=== PATIENT | female | born 1945 | race Caucasian/White ===

== ENCOUNTER 2023-05-02 09:38 | Outpatient (OUT) | payer MEDICARE, OTHER, SELFPAY ==
--- NOTE | 2023-05-02 09:48 | CT_ITS ---
[address] [address] Patient Name: JOSE J AYALA MRN: [id number] date: 1945 Sex: F Assigned Patient Location: LAB Current Patient Location: LAB Accession/Order Number: [id number] Exam Date: 05/02/2023 10:13 Report Date: 05/02/2023 12:19 At the request of: NATALIE BROUSSARD Procedure: CT angio abdomen pelvis EXAMINATION: CT angio abdomen pelvis HISTORY: aortic aneurysm abdominal I71.40 COMPARISON: CT abdomen pelvis 04/10/2022 TECHNIQUE: Axial, Coronal, and Sagittal CT images without and with IV contrast. Multi-planar/3-D imaging to optimize visualization of vascular anatomy. Dose reduction techniques were achieved by using automated exposure control and/or adjustment of mA and/or kV according to patient size and/or use of iterative reconstruction technique. FINDINGS: AORTA/VASCULAR: Mild fusiform dilation of the infrarenal aorta, 3.1 cm. Moderate-marked noncalcified plaque throughout aorta. CELIAC ARTERY: Normal celiac vessels. SMA: Normal mesenteric vessels. RENAL ARTERIES: Mild atherosclerotic narrowing at right origin. LUNG BASES: No visible pulmonary or pleural disease. LIVER: No enlargement, atrophy, abnormal density, or significant focal lesion. BILIARY: No visible dilatation or calcification. PANCREAS: No lesion, fluid collection, ductal dilatation, or atrophy. SPLEEN: No enlargement or focal lesion. ADRENALS: No mass or enlargement. KIDNEYS: No mass, obstruction, or calcification. BOWEL/MESENTERY: Sigmoid diverticulosis; no acute inflammatory changes. No visible mass, obstruction, or bowel wall thickening. Normal appendix. RETROPERITONEUM: No mass or adenopathy. LYMPH NODES: No adenopathy. URINARY BLADDER: No visible focal wall thickening, lesion, or calculus. PELVIC ORGANS: No visible mass. Pelvic organs appropriate for patient age. ABDOMINAL WALL: No mass or hernia. BONES: Multilevel moderate degenerative disc disease; marked at L5-S1. OTHER: Negative. CT/CT angio abdomen pelvis IMPRESSION: 1. Stable mild fusiform aneurysmal dilation of infrarenal aorta, 3.1 cm. 2. Grossly stable moderate marked plaque throughout the aorta; mostly noncalcified. No significant narrowing of the lumen. Electronically authenticated by: MARY SHARMA Date: 05/02/2023 12:19
[2023-05-02 10:04] LABS: Estimated GFR (African America >60 (>=60); Estimated GFR (Non-African Ame >60 (>=60)
== END 2023-05-02 09:39 | disposition home or self-care (01) ==
LOC: LAB 09:38
PROVIDERS: PCP Family Medicine
DX: I71.40 Abdominal aortic aneurysm, without rupture, unspecified (principal)
CPT/HCPCS: 36415; 74174; 82565; Q9967

== ENCOUNTER 2023-07-24 13:17 | Outpatient (OUT) | payer MEDICARE, OTHER, SELFPAY ==
--- NOTE | 2023-07-24 13:25 | US_ITS ---
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 TECHNIQUE: Color and Duplex Doppler ultrasound evaluation analysis were performed in the usual manner. FINDINGS: RIGHT LOWER EXTREMITY ARTERIAL External Iliac PSV: 81.4 cm/s External Iliac EDV: 0.0 cm/s Common Femoral PSV: 92.4 cm/s Common Femoral EDV: 0.0 cm/s Superficial Femoral Proximal PSV: 90.8 cm/s Proximal EDV: 0.0 cm/s Mid PSV: 72.7 cm/s Mid EDV: 0.0 cm/s Distal PSV: 67.5 cm/s Distal EDV: 0.0 cm/s Popliteal Proximal PSV: 42.0 cm/s Popliteal Proximal EDV: 0.0 cm/s Posterior Tibial Proximal PSV: 51.6 cm/s Proximal EDV: 0.0 cm/s Mid PSV: 74.9 cm/s Mid EDV: 0.0 cm/s Distal PSV: 56.9 cm/s Distal EDV: 0.0 cm/s Anterior Tibial Proximal PSV: 56.8 cm/s Proximal EDV: 0.0 cm/s Mid PSV: 51.6 cm/s Mid EDV: 0.0 cm/s Distal PSV: 63.3 cm/s Distal EDV: 0.0 cm/s LEFT LOWER EXTREMITY ARTERIAL External Iliac PSV: 77.5 cm/s External Iliac EDV: 1.4 cm/s Common Femoral PSV: 47.9 cm/s Common Femoral EDV: 6.0 cm/s Superficial Femoral Proximal PSV: 83.8 cm/s Proximal EDV: 0.0 cm/s Mid PSV: 74.1 cm/s Mid EDV: 0.0 cm/s Distal PSV: 74.1 cm/s Distal EDV: 0.0 cm/s Popliteal Proximal PSV: Popliteal Proximal EDV: Posterior Tibial Proximal PSV: 42.6 cm/s Proximal EDV: 0.0 cm/s Mid PSV: 49.0 cm/s Mid EDV: 0.0 cm/s Distal PSV: 37.4 cm/s Distal EDV: Anterior Tibial Proximal PSV: 39.2 cm/s Proximal EDV: 0.0 cm/s Mid PSV: 36.1 cm/s Mid EDV: 0.0 cm/s Distal PSV: 64.6 cm/s Distal EDV: 0.0 cm/s US/US arterial duplex LE BI IMPRESSION: 1. Normal flow and triphasic arterial waveform throughout both lower extremities. 2. Minimal atherosclerotic disease within the external iliac arteries bilaterally. Electronically authenticated by: MARY SHARMA Date: 07/25/2023 13:17
== END 2023-07-24 13:18 | disposition home or self-care (01) ==
LOC: US 13:17
PROVIDERS: PCP Family Medicine; Visit Provider Student in an Organized Health Care Education/Training Program
DX: I72.4 Aneurysm of artery of lower extremity (principal)
CPT/HCPCS: 93925

== ENCOUNTER 2023-07-24 13:18 | Outpatient (OUT) | payer MEDICARE, OTHER, SELFPAY ==
--- NOTE | 2023-07-24 13:21 | MM_ITS ---
Patient Name: JOSE J AYALA MR#: [id number] : 1945 Exam Date: 07/24/2023 Ordering Doctor: DR Alta Warren M.D. RADIOLOGY REPORT PROCEDURE: MM TOMOSYNTHESIS SCREENING BI COMPARISON: MG MAMM SCREEN SAMUEL W CAD, 02/04/2018. MG MAMM SAMUEL DIAG FU, 02/16/2017. MG MAMM SCREEN SAMUEL W CAD, 01/31/2017. INDICATIONS: Screening Calculator Name NCI Breast Cancer Risk Assessment Tool 5 Year Breast Cancer Risk 1.60% Lifetime Breast Cancer Risk 3.00% Personal Breast Cancer No Personal Ovarian Cancer No Treatments None Family Cancers None LOCATION: [facility] [place] BREAST COMPOSITION: There are scattered areas of fibroglandular density. FINDINGS: DIAGNOSTIC CATEGORY 1--NEGATIVE. RIGHT BREAST: No significant suspicious finding. Resolution of previously seen lymph node/cysts. LEFT BREAST: No significant suspicious finding. Resolution of previously seen lymph nodes/cysts. RECOMMENDATIONS: ROUTINE MAMMOGRAM AND CLINICAL EVALUATION IN 12 MONTHS. PLEASE NOTE: A NORMAL MAMMOGRAM DOES NOT EXCLUDE THE POSSIBILITY OF BREAST CANCER. A CLINICALLY SUSPICIOUS PALPABLE LUMP SHOULD BE BIOPSIED. Dictated by: Aryan Wong M.D. on 07/26/2023 at 13:54 Approved by: Aryan Wong M.D. on 07/26/2023 at 13:56
== END 2023-07-24 13:19 | disposition home or self-care (01) ==
LOC: MAMMO 13:18
PROVIDERS: PCP Family Medicine; Visit Provider Family Medicine
DX: Z12.31 Encounter for screening mammogram for malignant neoplasm of breast (principal); I72.4 Aneurysm of artery of lower extremity
CPT/HCPCS: 77063; 77067; 93925

== ENCOUNTER 2024-03-26 12:43 | Outpatient (OUT) | payer MEDICARE, SELFPAY ==
--- NOTE | 2024-03-26 12:46 | US_ITS ---
[facility] [place] [id number] Patient Name: JOSE J AYALA MRN: [id number] date: 1945 Sex: F Assigned Patient Location: US Current Patient Location: Accession/Order Number: [id number] Exam Date: 03/26/2024 12:47 Report Date: 03/26/2024 13:27 At the request of: AJAY MICHAEL Procedure: US venous doppler LE LT EXAMINATION: US venous doppler LE LT HISTORY: swelling of left lower extremity COMPARISON: No relevant comparison available. FINDINGS: REGION: Left lower extremity THROMBI: None. COMPRESSIBILITY: Normal compressibility. FLOW: Normal waveform and antegrade flow between 5 and 20 cm/s. OTHER: None. US/US venous doppler LE LT IMPRESSION: 1. No deep vein thrombus within the left lower extremity. Electronically authenticated by: MARY SHARMA Date: 03/26/2024 13:27
--- OUTSIDE RECORDS SUMMARY | 2024-03-26 13:00 | XMS_ITS | CCD ---
Author Organization [facility] Care Team Providers Care Special Agent [employer] Name Role Phone Alta Warren Unavailable DR ALTA WARREN Consulting Unavailable ALEC, DR ALTA Sarabia Attending Unavailable ALEC, DR ALTA Sarabia Admitting Unavailable ALEC, DR ALTA Sarabia Primary Care Unavailable CUBA HOLDER Consulting Unavailable ALEC, DR ALTA Sarbaia Primary Care Unavailable [place], DR PAMELA Moncada Consulting Unavailable ALEC, DR ALTA Sarabia Attending Unavailable ALEC, DR ALTA Sarabia Admitting Unavailable ALEC, DR ALTA Sarabia Consulting Unavailable IVANNA FRANCO Attending Unavailable ALTA WARREN Referring Unavailable ALTA WARREN Primary Care Unavailable IVANNA FRANCO Attending Unavailable ALTA WARREN Referring Unavailable ALTA WARREN Primary Care Unavailable Allergies Allergy Classification Reported Allergen(s) Allergy Type Date of Onset Reaction(s) Facility (5 sources) Ciprofloxacin Drug Allergy 12-03-19 14 Unknown, [facility] Comment on above: Onset Date: 12/03/19 14 (3 sources) varenicline Drug Allergy Unknown [employer] Other (1 source) [facility] *PSYCHOTHERAPEUTI C AND NEUROLOGICAL AGENTS Propensity to adverse reactions 01-03-20 17 Unknown [employer] Other (1 source) [facility] *PSYCHOTHERAPEUTI C AND Allergy to substance 03-24-19 [facility] Comment on above: Free Text Allergy: C [employer] *PSYCHOTHERAPEUTIC AND NEUROLOGICAL AGENTS; Onset Date: 01/02/2017 Medications Current Medications Medication Drug Class(es) Dates Sig (Normalized) Sig (Original) amoxicillin 875 mg / clavulanate 125 mg oral tablet (1 source) Penicillin-class Antibacterial Start: 11-20-2022 take 1 tablet by mouth every twelve hours Amoxicillin-Pot Clavulanate 875-125 MG 1 tablet Orally every 12 hrs for 10 day(s) Nov, Active benzonatate 200 mg oral capsule (1 source) Non-narcotic Antitussive Start: 11-20-2022 take 1 capsule by mouth every eight hours Benzonatate 200 MG 1 capsule Orally Three times a day for 10 day(s) Nov, Active Problems Active Problems Problem Classification Problem Date Documented Da te Episodic/Chronic Abdominal pain (9 sources) Right lower quadrant pain; Translations: [Right upper quadrant pain] Onset: 04-18-2022 Episodic Aortic; peripheral; and visceral artery aneurysms (1 source) Aortic aneurysm Onset: 06-14-2023 Chronic Chronic obstructive pulmonary disease and bronchiectasis (1 source) Bronchitis; Translations: [Bronchitis, not specified as acute or chronic] Episodic Osteoporosis (5 sources) Osteoporosis; Translations: [Age-related osteoporosis without current pathological fracture] Chronic Other connective tissue disease (1 source) Swelling of left lower limb; Translations: [Other specified soft tissue disorders] 03-24-2024 Episodic Other connective tissue disease (1 source) Other specified soft tissue disorders; Translations: [Swelling of limb] 03-24-2024 Episodic Other screening for suspected conditions (not mental disorders or infectious disease) (5 sources) Abnormal findings on diagnostic imaging of other specified body structures; Translations: [ABNORML FIND DX IMG OTH BODY STRUC] Onset: 04-27-2022 Chronic Other upper respiratory infections (3 sources) Acute maxillary sinusitis; Translations: [Acute recurrent maxillary sinusitis] Onset: 08-12-2013 Episodic Substance-related disorders (7 sources) Smoker; Translations: [Nicotine dependence, unspecified, uncomplicated] Onset: 01-02-2017 Chronic Unclassified (1 source) Infrarenal abdominal aortic aneurysm, without rupture; Translations: [Infrarenal abdominal aortic aneurysm, without rupture] Onset: 06-14-2023 Unclassified (1 source) nfrarenal abdominal aortic aneurysm (AAA) without rupture Onset: 08-02-2023 Past or Other Problems Problem Classification Problem Date Documented Da te Episodic/Chronic Acute bronchitis (1 source) Acute bronchitis; Translations: [Acute bronchitis, unspecified] Onset: 06-11-2018 Episodic Hemorrhoids (1 source) Residual hemorrhoidal skin tags; Translations: [Residual hemorrhoidal skin tags] Onset: 01-02-2017 Episodic Other lower respiratory disease (1 source) Pleuritic pain; Translations: [Pleurodynia] Onset: 01-02-2017 Episodic Other non-traumatic joint disorders (1 source) Arthralgia of the lower leg; Translations: [Pain in joint, lower leg] Onset: 07-16-2015 Episodic Other screening for suspected conditions (not mental disorders or infectious disease) (1 source) Mammography abnormal; Translations: [Unspecified abnormal mammogram] Onset: 01-31-2017 Episodic Other skin disorders (1 source) Disorder of nail; Translations: [Unspecified disease of nail] Onset: 01-02-2017 Episodic Residual codes; unclassified (1 source) Tobacco user; Translations: [Nondependent tobacco use disorder] Onset: 01-02-2017 Episodic Unclassified (1 source) Abdominal aortic aneurysm (AAA) without rupture, unspecified part I71.40 Viral infection (1 source) Verruca plantaris; Translations: [Plantar wart] Onset: 11-28-2017 Episodic Results Test Name Value Interpretation Reference Range Facil ity US PELVISon 04-27-2022 US PELVIS EXAM: US PELVIS 04/27/2022 HISTORY: Imaging result abnormal abnormal endometrium. COMPARISON: CT abdomen and pelvis 04/10/2022. TECHNIQUE: Real-time transabdominal imaging of the pelvis. Findings: The uterus measures 5.9 x 3.9 x 3.2 cm and demonstrates unremarkable parenchymal echotexture. No intrauterine mass. The endometrium is 0.4 cm thick. There is fluid within the endometrial canal. The left ovary is not visualized due to overlying bowel gas. The right ovary measures 2.1 x 0.9 x 0.9 cm and is unremarkable. Trace amount of free fluid within the pelvis. No adnexal mass. IMPRESSION: 1. Fluid within the endometrial canal. 2. Nonvisualization of the left ovary. Electronically authenticated by: CUBA HOLDER Date: 2022-04-27 11:51 Normal [facility] CT ABD/PELV W CONon 04-20-[address] ABD/PELV W CON EXAMINATION: CT ABD/PELV W CON, 04/18/2022 12:55 PM EST HISTORY: Right lower quadrant pain , epigastric pain, abdominal cramping COMPARISON: None. TECHNIQUE: CT scan of the abdomen and pelvis was performed with IV contrast. CT dose reduction technique was used, including Automated Exposure Control. FINDINGS: LUNG BASES: No visible pulmonary or pleural disease. LIVER: Diffuse hypoattenuation suggesting hepatic steatosis BILIARY: No dilatation or calcification. PANCREAS: No lesion, fluid collection, ductal dilatation, or atrophy. SPLEEN: No enlargement or focal lesion. ADRENALS: No mass or enlargement. KIDNEYS: Bilateral cortical hypodensities too small to characterize likely simple cysts BOWEL/MESENTERY: Moderate colonic diverticulosis. Nonobstructive bowel gas pattern. Normal appendix. AORTA/VASCULAR: Fusiform aneurysm of the distal abdominal aorta measuring up to 3.1 cm in diameter. Moderate diffuse atherosclerosis RETROPERITONEUM: No mass or adenopathy. LYMPH NODES: No adenopathy. URINARY BLADDER: No visible focal wall thickening, lesion, or calculus. PELVIC ORGANS: Dilation of the endometrial cavity which measures 1.4 cm ABDOMINAL WALL: No mass or hernia. BONES: No bony lesion or fracture. OTHER: Negative. IMPRESSION: Normal appendix Dilated endometrial cavity, ultrasound follow-up is recommended 3.1 cm fusiform aneurysm of the abdominal aorta Electronically authenticated by: PAMELA PONCE Date: 2022-04-19 08:05 Normal [facility] CBC AUTO DIFFon 04-18-2022 BASO # 0.1 103/ul Normal 0.0-0.1 [facility] Comment on above: Performed By: #### C BC #### [facility] [address] [place] [address] Dr. Umang Rashid Basophils/100 WBC (Bld) 0.8 % Normal 0.2-2.0 [facility] Comment on above: Performed By: #### C BC #### [facility] [address] [place] [address] Dr. Umang Rashid EO # 0.1 103/ul Normal 0.0-0.7 [facility] Comment on above: Performed By: #### C BC #### [facility] [address] [place] [address] Dr. Umang Rashid Eosinophils/100 WBC (Bld) 1.5 % Normal 0.9-7.0 [facility] Comment on above: Performed By: #### C BC #### [facility] [address] [place] [address] Dr. Umang Rashid Erythrocyte distribution width (RBC) [Ratio] 13.4 % Normal 11.0-15.0 [facility] Comment on above: Performed By: #### C BC #### [facility] [address] [place] [address] Dr. Umang Rashid Hematocrit (Bld) [Volume fraction] 42.6 % Normal 36.0-48.0 [facility] Comment on above: Performed By: #### C BC #### [facility] [address] [place] [address] Dr. Umang Rashid Hemoglobin (Bld) [Mass/Vol] 13.8 g/dL Normal 12.0-16.0 [facility] Comment on above: Performed By: #### C BC #### [facility] [address] [place] [address] Dr. Umang Rashid IG # 0.04 10e3/ul Critically high 0.00-0.[address] [facility] Comment on above: Performed By: #### C BC #### [facility] [address] [place] [address] Dr. Umang Rashid IG % 0.6 % Critically high 0.0-0.5 [facility] Comment on above: Performed By: #### C BC #### [facility] [address] [place] [address] Dr. Umang Rashid LYMPH # 2.3 103/ul Normal 1.2-3.8 [facility] Comment on above: Performed By: #### C BC #### [facility] [address] [place] [address] Dr. Umang Rashid Lymphocytes/100 WBC (Bld) 31.9 % Normal 20.5-60.0 [facility] Comment on above: Performed By: #### C BC #### [facility] [address] [place] [address] Dr. Umang Rashid MANUAL DIFF REQ NO Normal [facility] Comment on above: Performed By: #### C BC #### [facility] [address] [place] [address] Dr. Umang Rashid MCH (RBC) [Entitic mass] 27.3 pg Normal 26.7-34.0 [facility] Comment on above: Performed By: #### C BC #### [facility] [address] [address] [address] Umang Rashid MCHC (RBC) [Mass/Vol] 32.4 g/dL Normal 29.9-35.2 [facility] Comment on above: Performed By: #### C BC #### [facility] [address] [address] [address] Umang Rashid MCV (RBC) [Entitic vol] 84.2 fL Normal 81.0-99.0 [facility] Comment on above: Performed By: #### C BC #### [facility] [address] [place] [address] Dr. Umang Rashid MONO # 0.7 103/ul Normal 0.3-0.8 [facility] Comment on above: Performed By: #### C BC #### [facility] [address] [place] [address] Dr. Umang Rashid Monocytes/100 WBC (Bld) 10.3 % Normal 1.7-12.0 [facility] Comment on above: Performed By: #### C BC #### [facility] [address] [place] [address] Dr. Umang Rashid NEUT # 3.9 103/ul Normal 1.4-6.5 [facility] Comment on above: Performed By: #### C BC #### [facility] [address] [address] [address] Umang Rashid Neutrophils/100 WBC (Bld) 54.9 % Normal 43.0-75.0 [facility] Comment on above: Performed By: #### C BC #### [facility] [address] [address] [address] Umang Rashid Platelet mean volume (Bld) [Entitic vol] 8.9 fL Critically low 9.5-13.5 [facility] Comment on above: Performed By: #### C BC #### [facility] [address] [address] [address] Umang Rashid PLT 316 103/ul Normal 150-450 [facility] Comment on above: Performed By: #### C BC #### [facility] [address] [place] [address] Dr. Umang Rashid RBC 5.06 106/ul Normal 4.20-5.40 [facility] Comment on above: Performed By: #### C BC #### [facility] [address] [place] [address] Dr. Umang Rashid WBC 7.2 103/ul Normal 4.0-11.0 [facility] Comment on above: Performed By: #### C BC #### [facility] [address] [place] [address] Dr. Umang Rashid LIPASEon 04-18-2022 Lipase [Catalytic activity/Vol] 109.0 U/L Normal 73.0-393.0 [facility] Comment on above: Performed By: #### C MP, LIPA #### [facility] [address] [place] [address] Dr. Umang Rashid PROF 14(COMP METB)on 023 Albumin [Mass/Vol] 4.1 g/dL Normal 3.4-5.0 [facility] Comment on above: Performed By: #### C MP, LIPA #### [facility] [address] [place] [address] Dr. Umang Rashid Albumin/Globulin [Mass ratio] 1.1 {ratio} Normal [facility] Comment on above: Performed By: #### C MP, LIPA #### [facility] [address] [place] [address] Dr. Umang Rashid ALP [Catalytic activity/Vol] 82 U/L Normal 46-116 [facility] Comment on above: Performed By: #### C MP, LIPA #### [facility] [address] [place] [address] Dr. Umang Rashid ALT [Catalytic activity/Vol] 22 U/L Normal 14-59 [facility] Comment on above: Performed By: #### C MP, LIPA #### [facility] [address] [place] [address] Dr. Umang Rashid Anion gap [Moles/Vol] 11.1 mmol/L Normal [facility] Comment on above: Performed By: #### C MP, LIPA #### [facility] [address] [place] [address] Dr. Umang Rashid AST [Catalytic activity/Vol] 15 U/L Normal 15-37 [facility] Comment on above: Performed By: #### C MP, LIPA #### [facility] [address] [place] [address] Dr. Umang Rashid Bilirubin [Mass/Vol] 0.5 mg/dL Normal 0.2-1.0 [facility] Comment on above: Performed By: #### C MP, LIPA #### [facility] [address] [place] [address] Dr. Umang Rashid Calcium [Mass/Vol] 9.4 mg/dL Normal 8.5-10.1 [facility] Comment on above: Performed By: #### C MP, LIPA #### [facility] [address] [place] [address] Dr. Umang Rashid Chloride [Moles/Vol] 105 mmol/L Normal 98-107 [facility] Comment on above: Performed By: #### C MP, LIPA #### [facility] [address] [place] [address] Dr. Umang Rashid CO2 [Moles/Vol] 28.9 mmol/L Normal 21.0-32.0 [facility] Comment on above: Performed By: #### C MP, LIPA #### [facility] [address] [place] [address] Dr. Umang Rashid Creatinine [Mass/Vol] 0.70 mg/dL Normal 0.55-1.02 [facility] Comment on above: Performed By: #### C MP, LIPA #### [facility] [address] [place] [address] Dr. Umang Rashid EGFR-AF PARAGUAYAN >60 Normal >=60 [facility] Comment on above: Performed By: #### C MP, LIPA #### [facility] [address] [place] [address] Dr. Umang Rashid EGFR-NON AF PARAGUAYAN >60 Normal >=60 [facility] Comment on above: Performed By: #### C MP, LIPA #### [facility] [address] [place] [address] Dr. Umang Rashid Globulin (S) [Mass/Vol] 3.8 g/dL Normal [facility] Comment on above: Performed By: #### C MP, LIPA #### [facility] [address] [place] [address] Dr. Umang Rashid Glucose [Mass/Vol] 101 mg/dL Normal 74-106 [facility] Comment on above: Performed By: #### C MP, LIPA #### [facility] [address] [place] [address] Dr. Umang Rashid Potassium [Moles/Vol] 4.0 mmol/L Normal 3.5-5.1 [facility] Comment on above: Performed By: #### C MP, LIPA #### [facility] [address] [place] [address] Dr. Umang Rashid Protein [Mass/Vol] 7.9 g/dL Normal 6.4-8.[address] [facility] Comment on above: Performed By: #### C MP, LIPA #### [facility] [address] [place] [address] Dr. Umang Rashid Sodium [Moles/Vol] 141 mmol/L Normal 136-145 [facility] Comment on above: Performed By: #### C MP, LIPA #### [facility] [address] [place] [address] Dr. Umang Rashid Urea nitrogen [Mass/Vol] 10.0 mg/dL Normal 7.0-18.0 [facility] Comment on above: Performed By: #### C MP, LIPA #### [facility] [address] [place] [address] Dr. Umang Rashid Urea nitrogen/Creatinin e [Mass ratio] 14.3 mg/mg Normal [facility] Comment on above: Performed By: #### C MP, LIPA #### [facility] [address] [place] [address] Dr. Umang Rashid Vital Signs Date Time Vital Sign Value Performing Clinician Facility 03-24-2024 14:22-0500 Body height 162.56 cm [facility] 03-24-2024 14:22-0500 Body mass index (BMI) [Ratio] 23.3 kg/m2 [facility] 03-24-2024 14:22-0500 Body weight 61.68 kg [facility] 03-24-2024 14:22-0500 Diastolic blood pressure 86 mm[Hg] [facility] 03-24-2024 14:22-0500 Heart rate 109 /min [facility] 03-24-2024 14:22-0500 Systolic blood pressure 136 mm[Hg] [facility] 11-20-2022 13:45-0400 Body height 160.02 cm Alta Warren Other [facility] [employer] Other 11-20-2022 13:45-0400 Body mass index (BMI) [Ratio] 23.13 kg/m2 Alta Warren Other [employer] Other 11-20-2022 13:45-0400 Body temperature 98.4 [degF] Alta Warren Other [employer] Other 11-20-2022 13:45-0400 Body weight 59.24 kg Alta Warren Other [employer] Other 11-20-2022 13:45-0400 Diastolic blood pressure 71 mm[Hg] Alta Warren Other [employer] Other 11-20-2022 13:45-0400 Systolic blood pressure 101 mm[Hg] Alta Warren Other [employer] Other 04-11-2022 11:30-0500 Body height 160.02 cm Alta Warren Other [employer] Other 04-11-2022 11:30-0500 Body mass index (BMI) [Ratio] 23.73 kg/m2 Alta Warren Other [employer] Other 04-11-2022 11:30-0500 Body weight 60.78 kg Alta Warren Other [employer] Other 04-11-2022 11:30-0500 Diastolic blood pressure 82 mm[Hg] Alta Warren Other [employer] Other 04-11-2022 11:30-0500 SaO2% (BldA) [Mass fraction] 96 % Alta Warren Other [employer] Other 04-11-2022 11:30-0500 Systolic blood pressure 120 mm[Hg] Alta Warren Other [employer] Other Encounters Encounter Date Encounter Type Care Provider Facility Start: 03-24-2024 End: 03-24-2024 ambulatory [facility] Work Phone: Start: 03-24-2024 End: 03-24-2024 Patient encounter procedure [facility] Work Phone: Start: 08-02-2023 ambulatory [facility] Start: 06-14-2023 End: 06-14-2023 ambulatory [facility] Start: 11-20-2022 End: 11-20-2022 ambulatory Alta Warren Other [employer] Other Start: 11-20-2022 Office outpatient vi sit 15 minutes Alta Warren [facility] Start: 04-27-2022 Telephone encounter Alta Warren [facility] Start: 04-27-2022 End: 04-28-[address] ALTA WARREN Facility: Start: 04-19-2022 End: 03-01-2023 ambulatory Alta Warren Other [employer] Other Start: 04-19-2022 Telephone encounter Alta Warren [facility] Start: 04-18-2022 End: 04-19-[address] ALTA WARREN Facility:[facility] Start: 04-11-2022 End: 04-11-2022 ambulatory Alta Warren Other [employer] Other Start: 04-11-2022 Office outpatient vi sit 25 minutes Alta Warren [facility] Start: 10-18-2021 Adult health examination Alta Warren Other [employer] Other Procedures Date Procedure Procedure Detail Performing Clinician Start: 01-02-2017 Screening for malign ant neoplasm of colon Alta Warren Other Start: 01-02-2017 Screening mammography Ken[facility] Warren Other Start: 07-16-2015 Substance abuse counseling Alta Warren Other Screening for malign ant neoplasm of breast Alta Warren Other Plan of Treatment Date Care Activity Detail Author US Lower extremity vein - left [facility] Payers Date Payer Category Payer Unknown [id number] 1959 Medicare [id number] 2.1 [id number] 1945 Unknown [id number] 1945 Unknown [id number] 1945 Unknown [id number] 1945 Unknown [id number] Private Health Insurance [employer] [facility] C [id number] Social History Date Type Detail Facility Unknown if ever smoked [employer] Other Sex Assigned At Sex Assigned At Bir th [employer] Other Tobacco smoking status NHIS Unknown if ever smoked [facility] Work Phone: Start: 03-24-2024 Sex Female (finding) [facility] Start: 1945 Sex Assigned At Female F [facility] Evaluation note 11-20-2022 Note Date & Type Note Facility 11-20-2022 Evaluation note Encounter Date Diagnosis Assessment Notes Nov, Acute non-recurrent maxillary sinusitis (ICD-10 - J01.00) Fluids, rest, take antibiotics as prescribed. Call of symptoms continue [employer] Other Evaluation note 04-19-2022 Note Date & Type Note Facility 04-19-2022 Evaluation note Encounter Date Diagnosis Assessment Notes Apr, Abnormal finding present on diagnostic imaging of uterus (ICD-10 - R93.89) Apr, Abdominal aortic aneurysm (AAA) without rupture, unspecified part (ICD-10 - I71.40) [employer] Other Evaluation note 04-11-2022 Note Date & Type Note Facility 04-11-2022 Evaluation note Encounter Date Diagnosis Assessment Notes Mar, RLQ abdominal pain (ICD-10 - R10.31) Agreed to start with labs and CT. Discussed possible need for future colonoscopy. Mar, RUQ abdominal pain (ICD-10 - R10.11) Mar, LUQ abdominal pain (ICD-10 - R10.12) [employer] Other Evaluation note Note Date & Type Note Facility Evaluation note No Information [employer] Other Evaluation note Note Date & Type Note Facility Evaluation note Diagnosis Onset Date Resolution Swelling of left lower extremity acute March 24 2:15pm [facility] Work Phone: History general Narrative - Reported Note Date & Type Note Facility History general Narrative - Reported Type Medical History Current smoker Medical History Osteoporosis Surgical History COLONOSCOPY Surgical History TUBULAR ADENOMA Surgical History HEMRROIDECTOMY Hospitalization History SEE SURGICAL HX [employer] Other Summary Purpose Family History Relationship Condition Age at Onset Recorded Date/T kiara brother Family history of colon cancer Unknown Malignant neoplasm Unknown father Unknown mother Unknown Diabetes mellitus Unknown Heart disease Unknown sister Diabetes mellitus Unknown Advance Directives Advance Directive Response Recorded Date/ Time Advance Directives No March 24, 2024 2:13pm Reason for Referral Reason *FU 05/11 CT resul t. Former smoker. Thank you Diagnosis 1 Abdominal aortic ane urysm (AAA) without rupture, unspecified part (I71.40) Referral Organization [facility] kemi Referring Provider First Name Alta Referring Provider Last Name Alec Referring Provider Specialty Family [facility] cine Referred Organization Unknown Facility Referred Provider Rea Fonseca Referred Provider Specialty Vascular Matt thalia Referral Priority Routine General Notes [facility] 11:19:14 AM >received today, attachments made, referral faxed. Has a [facility] office [address] 04/27/2022 10:18:30 AM >faxed first attempt letter [facility] 05/04/2022 12:13:51 PM >faxed second attempt letter Chief Complaint and Reason for Visit Chief Complaint Admit Date Wellness/Discuss Leg March 24, 2024 2:15pm Reason for Visit Admit Date Swelling of left lower extremity Februar 2024 2:15pm Additional Source Comments REASON FOR VISIT (unrecogniz ed section and content) Stomach Painct and labsultra soundSinus Infection INFORMATION SOURCE (unrecogn ized section and content) DATE CREATED AUTHOR 05/03/2022 [facility] DATE CREATED AUTHOR AUTHOR'S ORGANIZ ATION 08/03/2023 [facility] Care Teams (unrecognized sec tion and content) Team Status: Active Member Role Status Dates Alta Warren MD Primary Care Provider Active Team Status: Inactive Member Role Status Dates Alta Warren MD Primary Care Provide r, Attending Provider Active Start: March 24, 2024 End: March 24, 2024 Goals (unrecognized section and content) Goals may be documented in a n alternate section FOR RECORDS PERTAINING TO PATIENTS WHO ARE OR HAVE BEEN ENROLLED IN A CHEMICAL DEPENDENCY/SUBSTANCEABUSE PROGRAM, SOME INFORMATION MAY BE OMITTED. This clinical summary was aggregated from multiple sources. Caution should be exercised in using it in the provision of clinical care. This summary normalizes information from multiple sources, and as a consequence, information in this document may materially change the coding, format and clinical context of patient data. In addition, data may be omitted in some cases. CLINICAL DECISIONS SHOULD BE BASED ON THE PRIMARY CLINICAL RECORDS. [facility] provides no warranty or guarantee of the accuracy or completeness of information in this document.
== END 2024-03-26 12:44 | disposition home or self-care (01) ==
LOC: US 12:43
PROVIDERS: PCP Family Medicine; Visit Provider Family Medicine
DX: M79.89 Other specified soft tissue disorders (principal)
CPT/HCPCS: 93971